=== PATIENT | male | born 1940 | race Caucasian/White ===

== ENCOUNTER → 2024-03-28 15:00 | Outpatient (REF) | payer MEDICARE, OTHER, SELFPAY | LOC: RAD 15:00 | PROVIDERS: ATTENDING PHYSICIAN Internal Medicine Critical Care Medicine; FAMILY PHYSICIAN Family Medicine | DX: I82.A11 Acute embolism and thrombosis of right axillary vein (principal); R20.0 Anesthesia of skin | CPT/HCPCS: 93971 ==

== ENCOUNTER → 2024-03-30 16:28 | Outpatient (REF) | payer MEDICARE, OTHER, SELFPAY | LOC: RAD 16:28 | PROVIDERS: ATTENDING PHYSICIAN Specialist; FAMILY PHYSICIAN Family Medicine | DX: E78.2 Mixed hyperlipidemia (principal); E03.9 Hypothyroidism, unspecified; N18.9 Chronic kidney disease, unspecified | CPT/HCPCS: 76770 ==

== ENCOUNTER → 2024-04-24 16:32 | Outpatient (REF) | payer MEDICARE, OTHER, SELFPAY | LOC: MRI 3T 16:32 | PROVIDERS: ATTENDING PHYSICIAN Specialist; FAMILY PHYSICIAN Family Medicine | DX: R97.20 Elevated prostate specific antigen [PSA] (principal) | CPT/HCPCS: 72197; A9575 ==

== ENCOUNTER → 2024-05-14 13:42 | Outpatient (REF) | payer MEDICARE, OTHER, SELFPAY ==
[2024-05-14 14:38] LABS: Hemoglobin 14.3 g/dL (13.0-18.0); Mean Corp Hgb Conc. 33.3 g/dL (33.0-37.0); Mean Corpuscular Hgb 32.6 pg (27.0-31.0); Mean Corpuscular Volume 97.9 fL (80.0-94.0); Platelet Count 147 10^3/uL (130-400); Red Blood Cell Count 4.39 10^6/uL (4.70-6.10); Red Cell Dist. Width 12.9 % (11.5-14.5); White Blood Cell Count 8.9 10^3/uL (4.8-10.8)
== END ==
LOC: SDSPAT 13:42
PROVIDERS: ATTENDING PHYSICIAN Specialist; FAMILY PHYSICIAN Family Medicine
DX: Z01.818 Encounter for other preprocedural examination (principal)
CPT/HCPCS: 36415; 85027; 93005

== ENCOUNTER 2024-05-18 06:35 | Day surgery (SDC) | payer MEDICARE, OTHER, SELFPAY ==
[2024-05-14 13:54] VITALS: BMI 27.6
[2024-05-18 09:46] VITALS: BMI 27.6
[2024-05-18 09:47] VITALS: BP 141/76
[2024-05-18 11:57] VITALS: BP 105/62
[2024-05-18 12:00] VITALS: BP 97/60
[2024-05-18 12:15] VITALS: BP 108/65
[2024-05-18 12:30] VITALS: BP 108/69
[2024-05-18 12:45] VITALS: BP 109/72
== END 2024-05-18 13:02 | disposition home or self-care (01) ==
LOC: SDS 06:35
PROVIDERS: ATTENDING PHYSICIAN Specialist; FAMILY PHYSICIAN Family Medicine
DX: C61 Malignant neoplasm of prostate (principal); R97.20 Elevated prostate specific antigen [PSA]
CPT/HCPCS: 55700; 76998; 88305; J1580

== ENCOUNTER → 2024-06-30 10:35 | Emergency (ER) | payer MEDICARE, OTHER, SELFPAY ==
[2024-06-30 10:38] VITALS: BP 141/77
--- NOTE | 2024-06-30 12:30 | ED.GENMED ---
History of Present Illness
General
Chief Complaint: Breathing Problem
Source: patient
Time Seen by Provider: 06/30/24 12:15
History of Present Illness
History of Present Illness:
84-year-old male presents to the emergency room complaining of cough, head congestion, chills for the past 2 days. This morning he woke up feeling short of breath and wheezing. The level of shortness of breath was startling to him. He feels
somewhat better now though not back to baseline. He did not take anything for his symptoms. Patient states he has a history of pulmonary problems including pneumonia, spontaneous pneumothorax and wheezing. Patient also has a coagulation problem
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 He has had DVTs in the past. Patient does not believe he had a fever at home.
Past History
Past History
ED Past Medical History: Other (Did also disease, pulmonary embolus, hyper cholesterolemia, pneumonia, pneumothorax, hypothyroidism and status post IVC filter for PE. He is not anticoagulated at this time )
ED Past Surgical History: Other (IVC filter placement )
Social History
Tobacco: Non-smoker
Alcohol: None
Drug: None
Personal:
Living: with family
Family History
Family History: Other (Lung cancer )
Phy Exam
Physical Exam
Physical Exam:
General: Awake, Alert, Oriented X3. No acute distress.
Vitals: unremarkable
Head: Atraumatic
Eyes: Pupils equal, EOMI
Throat: Airway intact, no exudates
Neck: Trachea midline
Lungs: Few expiratory wheezes
Heart: Regular rate, no murmurs
Abd: Soft, Nontender, No pulsatile mass
Neuro: Nonfocal
Skin: Warm, dry, no rash
Extremities: pulses equal b/l, no edema
Scores
Heart Failure Risk
Heart Failure Risk Score: Not Applicable
Course
Orders/Labs/Results
Orders:
Orders
06/30/24 12:27
Ipratropium/Albuterol Sulfate [Duoneb] 3 ml INH R NOW STA
06/30/24 12:28
Electrocardiogram (*1) Urgent
Reason for Study: Shortness of Breath
EKG- Treatment ONCE
CR Chest - 2 Views Urgent
Comment:
Reason For Exam: cough, sob
06/30/24 13:12
Basic Metabolic Panel Urgent
COVID-19 Antigen Urgent
Source: Nasal Swab
Complete Blood Count/With Diff Urgent
NT-proBNP Urgent
Prothrombin Time Urgent
Influenza A+B Rapid Molecular Urgent
JEROMY Source: Nasal Swab
Specimen Description:
Abnormal Lab Results
06/30/24
13:12
WBC 11.4 H 10^3/uL
(4.8-10.8)
RBC 4.64 L 10^6/uL
(4.70-6.10)
MCV 97.2 H fL
(80.0-94.0)
MCH 31.9 H pg
(27.0-31.0)
MCHC 32.8 L g/dL
(33.0-37.0)
MPV 10.6 H fL
(7.4-10.4)
Abs Immat Gran (auto) 0.1 H 10^3/uL
(0-0.05)
Absolute Neuts (auto) 9.3 H 10^3/uL
(1.4-6.5)
Absolute Lymphs (auto) 0.9 L 10^3/uL
(1.2-3.4)
Absolute Monos (auto) 0.9 H 10^3/uL
(0.1-0.6)
Neutrophils % 81.8 H %
(42.2-75.2)
Lymphocytes % 8.1 L %
(20.5-51.1)
PT 26.6 H Sec
(11.4-14.6)
BUN 24 H mg/dl
(9-20)
Creatinine 1.5 H mg/dL
(0.7-1.3)
06/30/24 13:12
06/30/24 13:12
Vital Signs
Initial and Last Documented VS:
Initial Vital Signs
Temp Pulse Resp BP Pulse Ox
98.8 F 68 20 141/77 96
06/30/24 10:38 06/30/24 10:38 06/30/24 10:38 06/30/24 10:38 06/30/24 10:38
Last Documented Vital Signs
Temp Pulse Resp BP Pulse Ox
98.8 F 68 12 130/68 96
06/30/24 10:38 06/30/24 10:38 06/30/24 14:48 06/30/24 14:46 06/30/24 14:48
MDM/Problems Addressed
Differential Diagnosis Includes:
Pneumonia, COVID, influenza, heart failure
MDM/Problems Addressed:
Patient presents feeling short of breath, cough and achy. He did test positive for influenza A. He feels a bit better after a breathing treatment. Labs are reassuring. Renal function appears to be close to baseline. Chest x-ray shows no acute
abnormalities. Patient stable for discharge. He understands to return if he has increasing shortness of breath.
*Radiology
Radiology exam reviewed: preliminary read by ED provider (No acute abnormalities on my review of the patient's chest x-ray)
*Pulse Oximetry
Patient hypoxic: no
*Critical Care Note
Total Time (30-74mins, 75-104mins- exclusive of procedures): Not Applicable
Patient Management
Social determinants of health affecting care: Strong social support
ED Attending Note
-
Portions of this chart may have been created with voice recognition software.� Occasional wrong word or��sound alike� substitutions may have occurred due to the inherent limitations of voice recognition software.
Discharge Plan
Departure
Patient Disposition: Home (Routine Discharge)
Date of Disposition: 06/30/24
Time of Disposition: 14:58
Patient with high blood pressure during this ER visit?: No
Condition: Good
Discharge Problem:
Influenza A
Instructions: Flu in adults - Discharge instructions, BLOOD PRESSURE
Prescriptions:
New
albuterol sulfate 90 mcg/actuation HFA aerosol inhaler
2 puff inhalation Q4H PRN (Reason: shortness of breath or wheezing) Qty: 8.5 0RF
No Action
simvastatin 40 mg Tablet
40 mg PO DAILY
levothyroxine [Levoxyl] 100 mcg Tablet
100 mcg PO DAILY
warfarin 2 mg Tablet
2 mg PO DAILY
magnesium oxide 500 mg magnesium Tablet
500 mg PO DAILY
calcium-magnesium 300-300 mg Tablet
1 tab PO DAILY
cholecalciferol (vitamin D3) [Vitamin D3] 25 mcg (1,000 unit) Tablet
25 mcg PO DAILY
Referrals:
Johann Rae MD [Family Provider] -
Discharge Date and Time
Print Language: LITHUANIAN
[2024-06-30] MEDS: DUONEB 3 ML INH (12:50)
[2024-06-30 13:32] LABS: % Basophils 0.6 % (0-2); % Eosinophils 1.4 % (0-6); % Immature Granulocytes 0.5 % (0-0.5); % Lymphocytes 8.1 % (20.5-51.1); % Monocytes 7.6 % (1.7-9.3); % Neutrophils 81.8 % (42.2-75.2); Absolute Basophils 0.1 10^3/uL (0-0.2); Absolute Eosinophils 0.2 10^3/uL (0-0.7); Absolute Immature Granulocytes 0.1 10^3/uL (0-0.05); Absolute Lymphocytes 0.9 10^3/uL (1.2-3.4); Absolute Monocytes 0.9 10^3/uL (0.1-0.6); Absolute Neutrophils 9.3 10^3/uL (1.4-6.5); Hematocrit 45.1 % (39.0-52.0); Hemoglobin 14.8 g/dL (13.0-18.0); INR 2.45; Mean Corp Hgb Conc. 32.8 g/dL (33.0-37.0); Mean Corpuscular Hgb 31.9 pg (27.0-31.0); Mean Corpuscular Volume 97.2 fL (80.0-94.0); Mean Platelet Volume 10.6 fL (7.4-10.4); Nucleated Red Blood Cells % 0 % (-); PT 26.6 Sec (11.4-14.6); Platelet Count 132 10^3/uL (130-400); Red Blood Cell Count 4.64 10^6/uL (4.70-6.10); Red Cell Dist. Width 13.2 % (11.5-14.5); White Blood Cell Count 11.4 10^3/uL (4.8-10.8)
[2024-06-30 13:35] LABS: Blood Urea Nitrogen 24 mg/dl (9-20); Calcium 9.3 mg/dl (8.4-10.2); Carbon Dioxide 26 mmol/L (22-30); Chloride 104 mmol/L (98-107); Glucose 98 mg/dl (70-99); Potassium 4.3 mmol/L (3.5-5.1); Sodium 138 mmol/L (135-145); eGFR 45.91
[2024-06-30 13:38] LABS: COVID-19 Antigen Negative (Negative)
[2024-06-30 13:45] LABS: NT-proBNP 277 pg/ml
[2024-06-30 14:46] VITALS: BP 130/68
[2024-06-30 15:00] VITALS: BP 114/68
== END | disposition home or self-care (01) ==
LOC: EMR 10:35
PROVIDERS: EMERGENCY PHYSICIAN Emergency Medicine; FAMILY PHYSICIAN Family Medicine
DX: J10.1 Influenza due to other identified influenza virus with other respiratory manifestations (principal); Z11.52 Encounter for screening for COVID-19; E78.00 Pure hypercholesterolemia, unspecified; E03.9 Hypothyroidism, unspecified; Z86.711 Personal history of pulmonary embolism; Z87.01 Personal history of pneumonia (recurrent); Z88.6 Allergy status to analgesic agent; Z88.5 Allergy status to narcotic agent; Z88.8 Allergy status to other drugs, medicaments and biological substances
CPT/HCPCS: 99283; 94640; 71046; 80048; 83880; 85025; 85610; 87502; 87811

== ENCOUNTER → 2024-09-03 14:22 | Outpatient (REF) | payer MEDICARE, OTHER, SELFPAY | LOC: HWRAD 14:22 | PROVIDERS: ATTENDING PHYSICIAN Internal Medicine Hematology & Oncology; FAMILY PHYSICIAN Family Medicine | DX: M81.0 Age-related osteoporosis without current pathological fracture (principal) | CPT/HCPCS: 77080 ==